=== PATIENT | female | born 1995 | race Caucasian/White ===

== ENCOUNTER 2017-02-11 15:40 | Emergency (ER) | payer OTHER ==
[2017-02-11 15:50] VITALS: BP 118/66; PULSE 65; RESP 18; TEMP 97.9; O2SAT 95
[2017-02-11] MEDS ORDERED: FLUORESCEIN SODIUM 1 MG STRIP OP ONE (16:08)
[2017-02-11] MEDS ORDERED: PROPARACAINE 0.5% 15 ML OPHT DROP ONE (16:08)
--- NOTE | 2017-02-11 16:30 | EDPHY ---
H & P Time Seen by Provider: 02/11/17 16:11 HPI/ROS: CHIEF COMPLAINT: Right eye pain HISTORY OF PRESENT ILLNESS: 21-year-old female presents to the emergency department with right eye irritation since this morning. The patient thinks that she had a piece of dirt blow into her eye. She states that every time she moves her eye around she feels a foreign body sensation. She did try flushing her right eye with artificial tears without success. No other visual changes. She believes her tetanus shot is current. ROS: Denies double vision, blurry vision, symptoms in the left eye. Past Medical/Surgical History: Kidney stones, migraine headaches, urticaria Social History: Single and lives in [place] Smoking Status: Never smoked Physical Exam: Visual Acuity: noted from Nurse's notes. Pupils:equal round and reactive to light EOMI Lids: no edema or swelling. Right upper eyelid was everted small black foreign body was removed it Skin: no proptosis, no periorbital erythema or swelling, no vesicles Conjunctivae: not injected, no discharge Cornea: Alcaine drops instilled into the right eye as well as fluorescein. Under slit-lamp examination the patient has superficial abrasion noted to the central aspect of the right cornea. No evidence of retained foreign body to the cornea. Anterior chamber:normal, no hyphema or hypopyon Constitutional: Initial Vital Signs Temperature (C) 36.6 C 02/11/17 15:48 Heart Rate 65 02/11/17 15:48 Respiratory Rate 18 02/11/17 15:48 Blood Pressure 118/66 02/11/17 15:48 O2 Sat (%) 95 02/11/17 15:48 Allergies/Adverse Reactions: No Known Allergies Allergy (Unverified 02/11/17 15:53) Home Medications: Medication Instructions Recorded EPINEPHRINE 02/11/17 Ofloxacin 0.3% [Ocuflox] 1 - 2 drops RTEYE QID 7 Days btl 02/11/17 MDM/Departure - [facility] ED Course/Re-evaluation: 21-year-old female presents with foreign body sensation in the right eye. Foreign body was removed under the right eyelid. Corneal abrasion was noted. The patient was started on Ocuflox drops. She does not were contacts. She was given referral to Ophthalmology follow-up in 48 hours if she continues to have ongoing symptoms or sooner if she has any visual change or feels worse. Patient verbalized understanding and agreed. Patient's tetanus shot is current. - Depart Disposition: Home, Routine, Self-Care Clinical Impression: Corneal abrasion right eye, Foreign body of right eyelid Condition: Good Instructions: Corneal Abrasion (ED), Eye Foreign Body (ED) Additional Instructions: Ocuflox 1-2 drops four times daily for one week to right eye. Return to the emergency department if you develop visual changes or if you feel worse in any way. Prescriptions: Ofloxacin 0.3% [Ocuflox] 1 - 2 drops RTEYE QID 7 Days btl Referrals: Rob Delvalle MD [Medical Doctor] - 2-3 days, if not improved ( Tech Ed/Woodshop Teacher on-call)
== END 2017-02-11 16:38 | disposition home or self-care (01) ==
DX: S00.251A Superficial foreign body of right eyelid and periocular area, initial encounter (principal); X58.XXXA Exposure to other specified factors, initial encounter

== ENCOUNTER 2018-08-01 18:15 | Emergency (ER) | payer OTHER ==
[2018-08-01 18:26] VITALS: BP 113/70
--- NOTE | 2018-08-01 18:47 | EDPHY ---
H & P Stated Complaint: Bump on R globe x4D, no visual changes, irritating. Time Seen by Provider: 08/01/18 18:46 - Personal History Current Tetanus/Diphtheria Vaccine: Yes - Medical/Surgical History Hx Asthma: No Hx Chronic Respiratory Disease: No Hx Diabetes: No Hx Cardiac Disease: Yes Hx Renal Disease: No Hx Cirrhosis: No Hx Alcoholism: No Hx HIV/AIDS: No Hx Splenectomy or Spleen Trauma: No Other PMH: PKD, kidney stones, migraines, UTI's, urticaria - Social History Smoking Status: Never smoked Constitutional: Initial Vital Signs Temperature (C) 36.8 C 08/01/18 18:25 Heart Rate 71 08/01/18 18:25 Respiratory Rate 16 08/01/18 18:25 Blood Pressure 113/70 08/01/18 18:25 O2 Sat (%) 96 08/01/18 18:25 O2 Delivery Mode Room Air Allergies/Adverse Reactions: Penicillins Allergy (Verified 08/01/18 18:24) Home Medications: Medication Instructions Recorded EPINEPHRINE 02/11/17 Ofloxacin 0.3% [Ocuflox] 1 - 2 drops RTEYE QID 7 Days btl 02/11/17 Medical Decision Making ED Course/Re-evaluation: CHIEF COMPLAINT: "Something in eye" HISTORY OF PRESENT ILLNESS: The patient is a 22 y/o female complaining of "something in her right eye". She first noticed a "growth" in her right eye on Monday, 4 days ago. This "growth " doesn't feel like a foreign object and she has no pain. She became concerned that she might have eye cancer. No fever, headache, body aches, lightheadedness , chest pain, heart palpitations, shortness of breath, cough, abdominal pain, urinary or bowel complaints, numbness, paresthesias. REVIEW OF SYSTEMS: A comprehensive 10 system review of systems is otherwise negative aside from elements mentioned in the history of present illness and medical decision making. PHYSICAL EXAM: HR, BP, O2 Sat, RR. Temp noted General Appearance: Alert, well hydrated, appropriate, and non-toxic appearing. Head: Atraumatic without scalp tenderness or obvious injury Visual Acuity: Noted from Nurse's notes. Pupils: PERRLA, EOMI, no nystagmus, no trauma, no injection. Lids: No edema or swelling Skin: No proptosis, no periorbital erythema or swelling, no vesicles Conjunctivae: Right lateral pterygium. Not injected, not icteric, no discharge Cornea: Exam with slit lamp and fluorescein shows Anterior chamber: Normal, no hyphema or hypopyon Posterior Chamber: No papilledema or hemorrhages. Past medical history: PKD, kidney stones, migraines, UTI's, urticaria Past surgical history: Denies Family history: Denies Social history: Lives in [place], single, employed DIAGNOSTICS/PROCEDURES/CRITICAL CARE TIME: Not indicated. DIFFERENTIAL DIAGNOSIS: The differential diagnosis for the patient's eye irritation included but was not limited to pterygium, foreign body, conjunctivitis, hyphema, hypopyon MEDICAL DECISION MAKING: The patient is a 22 y/o female complaining of "a growth in her right eye", which she first noticed 4 days ago. She denies any pain. On exam she has a right lateral pterygium via the slit lamp. She has an otherwise normal exam. I have advised her to follow up with an bleach mixer. Return precautions provided; patient is comfortable with this plan. Departure - Departure Disposition: Home, Routine, Self-Care Clinical Impression: Pterygium of eye Qualifiers: Laterality: right Qualified Code(s): H11.001 - Unspecified pterygium of right eye Condition: Good Instructions: Pterygium (ED) Additional Instructions: 1. You have a pterygium. 2. Follow up with an bleach mixer. 3. Return to the Emergency Department for visual changes, headache, fever, chest pain, shortness of breath, increasing pain or other worsening of condition. Referrals: Yesica Maria MD [Medical Doctor] - As per Instructions Report Scribed for: Francesco Botello Report Scribed by: Sharon Cordon Date of Report: 08/01/18 Time of Report: 19:04
== END 2018-08-01 19:16 | disposition home or self-care (01) ==
DX: H11.001 Unspecified pterygium of right eye (principal)